=== PATIENT | male | born 1930 | race Caucasian/White ===

== ENCOUNTER → 2016-12-10 | Outpatient (CLI) | payer MEDICARE ==
[2016-12-10 14:46] LABS: CH 30.6; CHCM 34.9; HCT 44.3 % (39.0-53.0); HDW 2.79; HGB 14.8 gm/dL (13.0-17.5); MCH 29.4 pg (25.0-35.0); MCHC 33.3 g/dL (31.0-37.0); MCV 88.1 fL (80.0-100.0); Mean Platelet Volume 7.7; RBC 5.02 m/uL (4.30-5.90); RDW 14.4 % (11.5-15.5); WBC 7.3 k/uL (3.8-10.6)
[2016-12-10 15:11] LABS: Anion Gap 9 mmol/L; Blood Urea Nitrogen 18 mg/dL (9-20); Carbon Dioxide 30 mmol/L (22-30); Chloride 101 mmol/L (98-107); Non-African American GFR(MDRD) >60 (>60 ml/min/1.73 sqM); Potassium 4.1 mmol/L (3.5-5.1); Sodium 140 mmol/L (137-145)
== END | disposition home or self-care (01) ==
LOC: LABPAT 14:01
PROVIDERS: ATTEND Internal Medicine Interventional Cardiology
DX: Z01.812 Encounter for preprocedural laboratory examination (principal); R94.39 Abnormal result of other cardiovascular function study
CPT/HCPCS: 80051; 82565; 84520; 85027

== ENCOUNTER 2016-12-17 06:38 | Day surgery (SDC) | payer MEDICARE ==
[2016-12-11 09:58] VITALS: BMI 28.7
[~2016-12-17 06:38] MED LIST: ALPRAZolam 0.25 MG TAB PO PRN; ALPRAZolam 0.5 MG TAB PO PRN; ASPIRIN 325 MG TAB PO STA; ATORVASTATIN 80 MG TAB PO STA; NITROGLYCERIN SL TABS 0.4 MG TAB SUBLINGUAL PRN; SODIUM CHLORIDE 0.9% 1,000 ML in EMPTY BAG 1 BAG IV ONE
[2016-12-17] MEDS ORDERED: diphenhydrAMINE 50 MG/ML 1 ML VIAL IVP ONE (07:45)
[2016-12-17] MEDS ORDERED: fentaNYL (PF) 50 MCG/ML 2 ML AMP IV ONE (07:46)
[2016-12-17] MEDS ORDERED: LIDOCAINE 2% INJ 20 MG/ML SQ ONE ×2 (07:48→08:15)
[2016-12-17] MEDS ORDERED: VERAPAMIL SYRINGE (5 MG/10 ML) INTRAARTER ONE (07:51)
[2016-12-17] MEDS ORDERED: BIVALIRUDIN BOLUS 250 MG/50 ML IV ONE (08:23)
[2016-12-17] MEDS ORDERED: BIVALIRUDIN 250 MG in SODIUM CHLORIDE 0.9% 50 ML IV ONE ×2 (08:24→09:11)
[2016-12-17] MEDS ORDERED: CLOPIDOGREL 75 MG TAB PO ONE (08:26)
[2016-12-17] MEDS ORDERED: NITROGLYCERIN SL TABS 0.4 MG TAB SUBLINGUAL ONE (08:40)
[2016-12-17] MEDS ORDERED: IOHEXOL 350 MG/ML 125ML BOTTLE INJ ONE (09:21)
[2016-12-17] MEDS ORDERED: ATROPINE SULFATE 0.1 MG/ML 10ML SYRINGE IV PRN (09:30)
[2016-12-17] MEDS ORDERED: SODIUM CHLORIDE 0.9% 1,000 ML IV SCH (09:30)
[2016-12-17] MEDS ORDERED: RX INFO: IV CONTRAST WAS GIVEN 1 EACH MISC MISCELLANE PRN (09:30)
[2016-12-17] MEDS ORDERED: ZOLPIDEM 5 MG TAB PO PRN (09:30)
[2016-12-17] MEDS ORDERED: NITROGLYCERIN SL TABS 0.4 MG TAB SUBLINGUAL PRN (09:30)
[2016-12-17] MEDS ORDERED: MAG HYDROX/AL HYDROX/SIMETH 30 ML CUP PO PRN (09:30)
--- NOTE | 2016-12-17 10:13 | CC ---
CARDIAC CATHETERIZATION REPORT Mr. Carrion is an 86-year-old male with a known history of hypertension, hyperlipidemia, who has been complaining of symptoms of chest discomfort and dyspnea on exertion , underwent a myocardial perfusion imaging that was consistent with stress-induced ischemia. He was evaluated by Dr. Valles, and recommendation made regarding cardiac catheterization. The procedures, risks and complications were discussed with the patient who is in full understanding and agreement. DESCRIPTION OF PROCEDURE: Patient was brought to the Maintenance Department Technician in a fasting semi-sedate after receiving fentanyl and Benadryl and achieving moderate conscious sedated state using xylocaine anesthesia and Seldinger technique. A 6-Wallisian sheath was introduced in the right radial artery. Multiple attempts to selectively cannulate the right coronary artery on the left main using a 5-Wallisian 3.5 bend right Fatmata, a 5-Wallisian 3.5. bend left Fatmata, an Paguate 2 catheter were unsuccessful. At that time, using xylocaine anesthesia and Seldinger technique, a 6-Wallisian sheath was introduced into the right femoral artery. Selective right and left angiography performed using 6-Wallisian 4 bend right Fatmata catheter. Multiple views of the coronary artery including hemiaxial views were obtained. Following that, a 6-Wallisian tight Pigtail catheter was introduced into the left ventricle and pressures were calculated. Following that, the catheter removed. Images were reviewed. FINDINGS: 1. FLUOROSCOPY: There is calcification involving the ostium of the right coronary artery as well as the left anterior descending artery. 2. LEFT MAIN VESSEL: This is a large-sized vessel bifurcating into the left circumflex, left anterior descending artery. Left main coronary artery has no evidence of high-grade stenosis. 3. LEFT ANTERIOR DESCENDING ARTERY: This is a large-sized vessel, reaching toward the apex with a wrap around apex segment, giving rise to two diagonal branches. The first one is very proximal. The first diagonal branch has a 99% stenosis in the very proximal segment. At the LAD beyond that has a tubular lesion proximal with area of stenosis up to 70%. The second diagonal branch is a small size vessel, that is a branching vessel. The first branch is totally occluded with minimal antegrade and retrograde filling. 4. LEFT CIRCUMFLEX: This is a nondominant vessel giving rise to 1 moderately- sized obtuse marginal branch. The left circumflex obtuse marginal branch has 20% to 30% plaque without any evidence of high-grade stenosis. 5. RIGHT CORONARY ARTERY: This is a large dominant vessel, bifurcating distally to PDA, posterior segment and branches. The right coronary artery in the distal segment has a 70% stenosis. The mid-segment has intimal disease of 20% to 30%. 6. LEFT VENTRICULOGRAM: Left ventriculogram was not performed. 7. HEMODYNAMICS: There was no gradient across the aortic valve. The left ventricle end-diastolic pressure was 20 to 24 mmHg. CONCLUSION: 1. 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 2. Significant disease in the distal right coronary artery. 3. Mild disease in the left circumflex. RECOMMENDATION: In view of finding anatomy, I would recommend proceeding with angioplasty and stenting of the LAD and diagonal branch. The procedures, risks and complication were discussed with the patient who is in full understanding and agreement. MMJO / DUNG: [id number] / MTDD
[2016-12-17] MEDS: LISINOPRIL 5 MG TAB PO SCH ×2 (11:00→20:37)
[2016-12-17] MEDS: METOPROLOL TARTRATE 25 MG TAB PO SCH ×2 (11:00→20:37)
[2016-12-17] MEDS ORDERED: amLODIPine 5 MG TAB PO STA (12:03)
[2016-12-18 07:10] LABS: Anion Gap 7 mmol/L; Blood Urea Nitrogen 21 mg/dL (9-20); Calcium 8.9 mg/dL (8.4-10.2); Carbon Dioxide 29 mmol/L (22-30); Chloride 104 mmol/L (98-107); Glucose 97 mg/dL (74-99); Non-African American GFR(MDRD) >60 (>60 ml/min/1.73 sqM); Potassium 3.6 mmol/L (3.5-5.1); Sodium 140 mmol/L (137-145)
[2016-12-18] MEDS ORDERED: SODIUM CHLORIDE 0.9% 1,000 ML in EMPTY BAG 1 BAG IV ONE (07:31)
[2016-12-18] MEDS ORDERED: ASPIRIN 325 MG TAB PO STA (07:31)
[2016-12-18] MEDS ORDERED: NITROGLYCERIN SL TABS 0.4 MG TAB SUBLINGUAL PRN (07:31)
[2016-12-18] MEDS ORDERED: ALPRAZolam 0.25 MG TAB PO PRN (07:31)
[2016-12-18] MEDS ORDERED: ATORVASTATIN 80 MG TAB PO STA (07:31)
[2016-12-18] MEDS ORDERED: ALPRAZolam 0.5 MG TAB PO PRN (07:31)
[2016-12-18] MEDS: LISINOPRIL 5 MG TAB PO SCH (08:55)
[2016-12-18] MEDS: METOPROLOL TARTRATE 25 MG TAB PO SCH (08:55)
[2016-12-18] MEDS ORDERED: CLOPIDOGREL 75 MG TAB PO SCH (09:00)
[2016-12-18] MEDS ORDERED: ASPIRIN 81 MG PO SCH (09:00)
[2016-12-18 10:10] VITALS: BP 101/54; PULSE 69; RESP 16; TEMP 97.8
--- NOTE | 2016-12-18 13:54 | PN ---
PROGRESS NOTE Mr. Carrion is an 86-year-old male who presented with symptoms of chest discomfort, abnormal myocardial perfusion imaging, underwent a cardiac catheterization, was found to have critical stenosis involving the 1st diagonal branch, proximal LAD and the distal right coronary artery. He underwent stenting of the diagonal branch and the LAD. He is doing well this morning, ambulating without difficulty. Denying any chest pain. No dizziness. No palpitation. He continues to be at this time on: 1. Aspirin once a day. 2. Lipitor 80 mg daily. 3. Plavix 75 mg daily. 4. Lisinopril 5 mg twice a day. 5. Metoprolol tartrate 25 mg twice a day. PHYSICAL EXAMINATION: Blood pressure 113/60 with a heart rate in the 70s. LUNGS: Clear. HEART: Regular rate and rhythm. S1, S2. No S3. No rub. ABDOMEN: Soft, nontender. EXTREMITIES: No edema. Right groin hematoma. Right radial pulse is intact. EKG revealed no acute changes. Lab data revealed BUN and creatinine of 21 and 1.01. IMPRESSION: 1. Status post stenting of the diagonal branch in the left anterior descending. 2. Significant disease in the distal right coronary artery. 3. Hypertension. 4. Hyperlipidemia. RECOMMENDATION: Patient will be discharged home today to be re-admitted in a week to undergo stenting of the right coronary artery. The rest of my recommendations were discussed with the patient and he is in full understanding and agreement. JULIANN / DUNG: [id number] /
[2016-12-18] MEDS ORDERED: ATORVASTATIN 80 MG TAB PO SCH (21:00)
--- NOTE | 2016-12-21 10:58 | LTR ---
Date: DATE OF SERVICE: 12/17/[address] Villatoro; I had the pleasure to perform cardiac catheterization on Mr. Carrion at [facility] on December 17, 2016 and a full copy of the procedure note will be forwarded to you. In brief, he was found to have significant disease involving the proximal LAD, ostium of the diagonal branch as well as the distal right coronary artery. He underwent successful stenting of the LAD and the diagonal branch and I would recommend to proceed with a staged procedure to the right coronary artery. I will keep you updated on his progress and thank you again for allowing me to participate in this patient's care. Please feel free to call for any questions. Sincerely yours, Daria CARDOZOL / ERENDIRAN: [id number] /
--- NOTE | 2016-12-21 10:58 | AS ---
ARTERIAL STUDY Mr. Carrion is an 85-year-old male with a history of hypertension, hyperlipidemia, who has had symptoms of chest discomfort and abnormal stress test. Underwent a coronary angiography, was found to have significant disease involving the diagonal branch, LAD and distal right coronary artery. In view of that, recommendation made regarding angioplasty and stenting. The procedure, as well as risks and complications were discussed with the patient who is in full understanding and agreement. PROCEDURE: A 6-Senegalese FR4 guiding catheter was introduced into the system after cannulating the left main. A 0.014 Advanced medium J-weight was advanced across the lesion and positioned distally. Then a 2.5 x 12 mm Xience Alpine stent was deployed and post- dilated at 14 atmospheres. Following that, the balloon was withdrawn back and another 0.214 advanced medium weight J-wire was advanced into the LAD. Multiple attempts to advance a 3.0 x 15 mm Xience Alpine stent to the LAD were unsuccessful. The stent was removed and attempts to advance a GuideLiner into the proximal LAD were unsuccessful as well. At that point, the guide line was removed and a 2.5 x 12 mm trek balloon was advanced and an inflation of the proximal LAD was performed to the maximum of 10 atmospheres. Following that, the balloon was removed and the 3.0 x 15 mm Xience Alpine stent was advanced, deployed and post-dilated at 16 atmospheres after the last inflation, after appropriate wait, the balloon and guidewire were withdrawn back in the guiding catheter. Images were obtained and repeated. Those images reveal stable successful stenting. At that point, the guiding catheter, the balloon and the guidewire were removed. The sheath was sutured in place and the radial sheath was removed. Hemostasis was obtained with deployment of a TR band on the radial artery. Patient has chest discomfort and EKG changes with the inflations that resulted in the procedure. He received Angiomax per protocol as well as oral loading dose of clopidogrel and at the start of the cardiac catheterization he has received 4500 units of intravenous heparin as well as intra-arterial Verapamil. RESULTS: 1. Successful stenting of the ostium of the first diagonal branch with reduction of stenosis from 99% to 0%. 2. Successful stenting of the proximal LAD with reduction of stenosis from 70% to 0%. RECOMMENDATION: Patient will continue on aspirin, Plavix, beta naldo, WIN inhibitor, statin. He will be re-evaluated later time to undergo a staged angioplasty and stenting of the right coronary artery. Those findings and recommendation were discussed with the patient and his family in full understanding and agreement. Duration of procedure 95 minutes. JULIANN / DUNG: [id number] /
== END 2016-12-18 11:00 | disposition home or self-care (01) ==
LOC: CATHCVL 06:38 → 6SEL 09:21 → CATHCVL 12-18 11:00
PROVIDERS: ATTEND Internal Medicine Interventional Cardiology
DX: I25.10 Atherosclerotic heart disease of native coronary artery without angina pectoris (principal); I10 Essential (primary) hypertension; E78.5 Hyperlipidemia, unspecified; I73.9 Peripheral vascular disease, unspecified; Z82.49 Family history of ischemic heart disease and other diseases of the circulatory system; Z79.82 Long term (current) use of aspirin; Z79.899 Other long term (current) drug therapy
CPT/HCPCS: 93458; 85347; 80048; C9600; C9601; C1769 ×2; C1887 ×2; C1894 ×2; C1725; C1874; J2001; J1200; J3010; J0583; J1644; Q9967